=== PATIENT | male | born 1945 | race Caucasian/White ===

== ENCOUNTER → 2018-02-07 | Outpatient (CLI) | payer OTHER ==
--- NOTE | 2018-02-08 08:29 | CT ---
EXAMINATION TYPE: CT abdomen wo/w con DATE OF EXAM: 02/07/2018 COMPARISON: None at this institution. HISTORY: Prior history of renal cancer. Follow up per patient CT DLP: 1100.6 mGycm CONTRAST: CT scan of the abdomen is performed without Oral Contrast and without and with IV Contrast, patient injected with 100 mL of Isovue 300. FINDINGS: LUNG BASES-: No visible nodule. No infiltrate. LIVER/GB: No calcified gallstones. No space occupying hepatic lesion. Biliary tree is of normal ca liber. PANCREAS: No inflammation. No distinct mass. SPLEEN: No splenic enlargement. No lesion seen. ADRENALS: No nodule. No thickening. KIDNEYS/BLADDER: Multiple simple appearing cysts are seen bilaterally totaling approximately 7 benign on the right with the largest cyst measuring 3.1 cm. The left kidney demonstrates multiple cysts as well totaling approximately 9 in number with the largest cyst measuring 3.3 cm in greatest dimension. No solid renal lesions are detected. There are multiple nonobstructing renal calculi seen bilaterall y with the largest calculus upper pole left kidney measuring 8 mm. BOWEL: Normal bowel caliber. No inflammation. LYMPH NODES: No greater than 1cm abdominal or pelvic lymph nodes are appreciated. AORTA: No significant abnormality. OSSEOUS STRUCTURES: No significant abnormality is seen. OTHER: No significant additional abnormality is seen. IMPRESSION: 1. Multiple simple appearing cysts bilaterally. No concerning lesion identified at this time.
== END | disposition home or self-care (01) ==
LOC: RADCTMAIN 16:44
PROVIDERS: ATTEND Urology
DX: Z08 Encounter for follow-up examination after completed treatment for malignant neoplasm (principal); N28.1 Cyst of kidney, acquired; Z85.528 Personal history of other malignant neoplasm of kidney
CPT/HCPCS: 82565; 84520; 74170; 36415; Q9967

== ENCOUNTER → 2019-02-20 | Outpatient (CLI) | payer OTHER ==
--- NOTE | 2019-02-21 05:21 | CT ---
EXAMINATION TYPE: CT abdomen pelvis wo/w con DATE OF EXAM: 02/20/2019 COMPARISON: 02/07/2018 and 01/03/2017 HISTORY: 73-year-old male Right sided renal cancer. TECHNIQUE: Contiguous axial scanning of the abdomen and pelvis before and after administration of 100 ml Isovue 300 IV contrast. Delayed images through the kidneys and coronal/sagittal reconstructions performed. CT DLP: 1762.3 mGycm Automated exposure control for dose reduction was used. FINDINGS: Heart normal size without pericardial effusion. Lung bases clear without pleural effusion. No focal liver lesion or biliary ductal dilatation. Portal venous system is patent. Gallbladder is collapsed. Adrenal glands, spleen, and pancreas appear within normal limits. Bilateral renal calculi measuring up to 9 mm on the left and 5 mm on the right. Numerous bilateral ca lcifications are demonstrated. In addition, multiple bilateral renal cysts are present, largest medially in the right kidney measure s 2.9 cm and posteriorly in the left kidney measures 2.5 cm. Some of these lesions are too small for accurate CT characterization but also likely represent cysts. Others have somewhat intermediate attenuation and could be complicated with some proteinaceous or he morrhagic debris. All of these are largely unchanged from 01/03/2017. A rounded 1.5 cm lesion posterior midpole right kidney has central fat density and is located at the site of a cortical defect suggesting prior resection or ablation site. No dilated small bowel, free fluid, or free air. No mesenteric or retroperitoneal lymphadenopathy. Mi ld atherosclerotic calcifications abdominal aorta and iliac arteries. Normal appendix. Mild overall stool burden. Bladder is urine distended. Prostate gland is moderately distended 5.2 cm wide. No abnormal fluid col lection in the pelvis or pelvic lymphadenopathy. Bones: Mild degenerative changes of the hips. Bilateral L5 pars defects with grade 2 anterolisthesis at L5-S1. Bulky facet arthropathy extends into the dorsal spinal canal and may contribute to severe s cornel canal stenosis at this level similar to prior exam. IMPRESSION: 1. BILATERAL RENAL LESIONS, SOME OF WHICH ARE TOO SMALL TO ACCURATELY CHARACTERIZE AND OTHERS REPRESE NTING BENIGN CYSTS. THE SMALLER LESIONS, GIVEN OVERALL STABILITY FROM 2017, ARE ALSO SUGGESTIVE OF CY STS. 2. SUSPECT PRIOR RESECTION OR ABLATION SITE ALONG THE MID POSTERIOR RIGHT KIDNEY. NO SUSPICIOUS RENAL LESION OR EVIDENCE FOR LOCAL RECURRENCE AT THIS TIME. 3. REDEMONSTRATED NUMEROUS BILATERAL RENAL CALCULI MEASURING UP TO 9 MM. 4. BILATERAL L5 PARS DEFECTS REDEMONSTRATED WITH ASSOCIATED GRADE 2 ANTEROLISTHESIS AT L5-S1. 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
== END | disposition home or self-care (01) ==
LOC: RADCTMAIN 14:49
PROVIDERS: ATTEND Registered Nurse
DX: N20.0 Calculus of kidney (principal); N28.89 Other specified disorders of kidney and ureter; C64.9 Malignant neoplasm of unspecified kidney, except renal pelvis
CPT/HCPCS: 74178; Q9967 ×2